=== PATIENT | male | born 1945 | race Caucasian/White ===

== ENCOUNTER 2023-12-01 19:54 | Outpatient (REF) | payer MEDICARE, MEDICAID, SELFPAY ==
[2023-12-01 21:25] LABS: HCT 44.9 % (40.0-50.0); HGB 14.5 g/dL (13.5-17.5); MCH 30.7 pg (27.0-33.0); MCHC 32.3 % (32.0-36.0); MCV 95 fL (80-95); MPV 9.8 fL (8.0-11.0); Platelet Count 294 10^3/uL (130-400); RBC 4.72 10^6/uL (4.36-5.78); RDW 13.3 % (11.8-14.1); RDW-SD 46.7 fL; WBC 8.17 10^3/uL (4.4-10.8)
[2023-12-01 21:46] LABS: ALT 26 U/L (16-63); AST 28 U/L (15-37); Albumin 3.7 g/dL (3.4-5.0); Alkaline Phosphatase 121 U/L (46-116); Anion Gap 8.3 mmol/L (3-11); BUN 38 mg/dL (7-18); CO2 29.7 mmol/L (21.0-32.0); CREATININE 1.9 mg/dL (0.70-1.30); Calcium 9.7 mg/dL (8.5-10.1); Calculated LDL 82 mg/dL (<100); Chloride 105 mmol/L (98-107); Cholesterol 146 mg/dL (<200); Estimated GFR 35.66 (mL/min/1.73m2); Glucose 90 mg/dL (74-106); HDL Cholesterol 45 mg/dL (40-60); Potassium 4.4 mmol/L (3.5-5.1); Sodium 143 mmol/L (136-145); Total Protein 7.9 g/dL (6.4-8.2); Triglyceride 98 mg/dL (<150)
== END 2023-12-01 19:55 | disposition home or self-care (01) ==
LOC: NCHCN 19:54
PROVIDERS: Visit Provider Internal Medicine
DX: E11.9 Type 2 diabetes mellitus without complications (principal)
CPT/HCPCS: 80053; 80061; 85027